=== PATIENT | female | born 2000 | race Caucasian/White ===

== ENCOUNTER → 2023-06-09 | Outpatient (CLI) | payer OTHER, SELFPAY ==
--- NOTE | 2023-06-09 12:58 | US_ITS ---
STUDY: RENAL ULTRASOUND - COMPLETE REASON FOR EXAM: Female, 23 years old. UTI TECHNIQUE: Ultrasound evaluation of the kidneys was performed with real-time and static bergman-scale imaging. COMPARISON: None. FINDINGS: RIGHT KIDNEY: Normal location of the right kidney, which is normal in size. The right kidney measures 10.2 cm x 4.6 x 3.4 cm. There is a normal cortex of the right kidney. The renal cortex measures 1.6 cm. There is no right renal mass or cyst. There are no right renal calculi. There is no right hydronephrosis. DISTAL RIGHT URETER: There is non-visualization of the distal right ureter. There is no demonstrated right ureterovesical junction calculus. There is no demonstrated right ureteral jet. LEFT KIDNEY: Normal location of the left kidney, which is normal in size. The left kidney measures 10.1 cm x 4.2 cm x 5.8 cm. There is a normal cortex of the left kidney. The renal cortex measures 2.1 cm. There is no left renal mass or cyst. There are no left renal calculi. There is no left hydronephrosis. DISTAL LEFT URETER: There is non-visualization of the distal left ureter. There is no demonstrated left ureterovesical junction calculus. There is no demonstrated left ureteral jet. BLADDER: The distended urinary bladder has a volume of 161 ml. There is a normal wall thickness of the distended urinary bladder. There is no demonstrated mass within the urinary bladder. There are no demonstrated bladder calculi. US/Kidney and Bladder IMPRESSION: Normal ultrasound of the kidneys and urinary bladder. Electronically Signed: Rei Woo MD at 15:39 EST ,
== END | disposition home or self-care (01) ==
LOC: US 12:57
PROVIDERS: Referring Provider Urology; Visit Provider Urology
DX: N39.0 Urinary tract infection, site not specified (principal)
CPT/HCPCS: 76770

== ENCOUNTER 2023-07-14 10:36 | Day surgery (SDC) | payer OTHER, SELFPAY ==
[2023-07-14 11:09] VITALS: BP 112/76; PULSE 68; RESP 16; TEMP 37.1; O2SAT 100; BMI 26.5
[2023-07-14 11:10] LABS: Internal QC Validated? YES +Cl - CLEAR BKGD; Pregnancy, Urine Negative Negative
[2023-07-14] MEDS: Lactated Ringers 1,000 ML 15 ML IV (11:19)
--- NOTE | 2023-07-14 11:52 | DCINST_ITS ---
Discharge Instructions Diet Discharge Diet: No restrictions Activity Discharge Activity: Return to Normal Activity Dressing / Incision Call your doctor if you observe: Fever of 101 or Higher, Inability to urinate and Inability to have a bowel movement Follow Up Care Please Follow Up With: Audrey Welch MD When: Schedule an appointment to be seen in the office in 3-4 weeks Test Results: Test results from this visit will be discussed in further detail at your follow- up appointment, if applicable. Discharge Plan Admission Attending Provider: Audrey Welch Primary Care Provider: Care Physician,Rhianna Primary Discharge Orders/Prescriptions Prescriptions: Continued cephalexin 250 mg capsule 250 mg PO QHS Referrals / Follow Up: Care Physician,No Primary [Primary Care Provider] - Disposition Disposition (needs filled in before D/C Order can be placed): Home, Self Care
--- NOTE | 2023-07-14 11:53 | PCM.OPRPT ---
Report of Operation Date of Procedure: 07/14/23 Pre-Operative Diagnosis: urinary tract infection Post-Operative Diagnosis: same Surgery/Procedure Performed:: cystoscopy, pelvic exam under anesthesia Surgeon: Audrey Welch Type of Anesthesia: MAC Description of Procedure: The patient is a 23-year-old female with recurrent UTIs who presents for cystoscopy and pelvic exam under anesthesia. Informed consent was obtained. She was taken to the operating room and placed on the operating room table. Anesthesia monitored the head, neck, airway, IV access and vital signs throughout the case. Once anesthesia was appropriately administered, she was placed into dorsolithotomy position was prepped and draped in usual sterile fashion. Pelvic examination revealed no evidence of mass, erythema, abnormality including evidence of infection. The cystoscope was inserted through the urethra under direct visualization into the urinary bladder. The bladder mucosa was visualized in its entirety without evidence of mass, erythema, foreign body or abnormality. The bladder was then emptied and the cystoscope was removed. She was awakened and taken to the recovery room in good condition. There were no complications during this procedure. Grafts/Implants Used: none Complications none Admit VTE Documentation VTE Present on Admission: Yes VTE Mechan Device Prophylaxis: SCD's VTE Pharm Prophylaxis ordered?: No Reason prophylaxis not ordered:: Treatment Not Indicated
[2023-07-14 12:23] VITALS: BP 104/65; BP 112/76; PULSE 58; RESP 16; TEMP 36.6; O2SAT 97
[2023-07-14 12:25] VITALS: BP 103/65; BP 112/76; PULSE 60; RESP 16; O2SAT 97
[2023-07-14 12:30] VITALS: BP 108/68; BP 112/76; PULSE 57; RESP 16; O2SAT 98
[2023-07-14 12:35] VITALS: BP 112/76; BP 99/65; PULSE 57; RESP 16; TEMP 36.1; O2SAT 98
[2023-07-14 12:59] VITALS: BP 112/76
== END 2023-07-14 13:05 | disposition home or self-care (01) ==
LOC: SDC 10:46 → AC 10:47
PROVIDERS: Anesthesiology; Referring Provider Urology; Visit Provider Urology
PROC: 0TJB8ZZ Inspection of Bladder, Via Natural or Artificial Opening Endoscopic (ICD-10-PCS; CPT 57410; principal; 2023-07-14 11:45)
DX: N39.0 Urinary tract infection, site not specified (principal); R10.30 Lower abdominal pain, unspecified; R35.1 Nocturia
CPT/HCPCS: 52000; 00910; 81025; J7120; J2405